=== PATIENT | female | born 1970 ===

== ENCOUNTER 2020-09-25 08:46 | Day surgery (SDC) | payer OTHER ==
[~2020-09-25 08:46] MED LIST: SYNTHROID50 MCG PO
[2020-09-25] MEDS ORDERED: MORGIDOX100 MG PO (18:27)
[2020-09-25] MEDS ORDERED: tylenol #3 PO (18:27)
== END 2020-09-25 20:25 | disposition home or self-care (01) ==
LOC: CIR.AMB 08:46
PROVIDERS: ATTEND Obstetrics & Gynecology
DX: D25.0 Submucous leiomyoma of uterus (principal); N84.0 Polyp of corpus uteri; Z20.828 Contact with and (suspected) exposure to other viral communicable diseases